=== PATIENT | female | born 1985 | race Caucasian/White ===

== ENCOUNTER 2017-06-16 11:22 | Inpatient (IN) | payer MEDICAID ==
[~2017-06-16] VITALS: Ht 149.9 cm; Wt 54.0 kg
[~2017-06-16 11:22] MED LIST: PREN1TAB17 PO
[2017-06-16] MEDS ORDERED: LACTATED RINGER'S 1,000 ML IV SCH (11:34)
--- NOTE | 2017-06-16 11:58 | LDN ---
Date/Time of Note Date/Time of Note DATE: 06/16/17 TIME: 11:54 Delivery Summary Normal spontaneous vaginal delivery of a baby boy from DES position, meconium- stained amniotic fluid shoulders delivered without any difficulty rest of the baby's body follow cord meconium stain clamped after stopped pulsation placenta meconium stain spontaneous expulsion sent to the pathology perineum and vagina inspected no laceration Weeks of Gestation 39 weeks Placenta Delivered: Spontaneously Meconium: Light Episiotomy: No Laceration repair: None Sponge & Needle done & correct: Yes All needle counts correct: Yes Any foreign bodies felt in the: No Problems: Infant Delivery Information Sex Infant Sex: male Apgars 1 Minute: 9 5 Minute: 9 Suctioning Nose & mouth suctioned at maureen: Yes Delee suction performed: No Umbilical Cord Umbilical cord with: 3 Vessels Cord Blood was obtained: Yes BENJI COLVIN MD Jun 16, 2017 11:58
[2017-06-16] MEDS ORDERED: LIDOCAINE 1% (MPF) 30 ML INJ INJ PRN (12:00)
[2017-06-16] MEDS ORDERED: IBUPROFEN 600 MG TAB PO PRN (12:00)
[2017-06-16] MEDS ORDERED: OXYTOCIN 30 UNITS/LR 500 ML IV SCH ×2 (12:00)
[2017-06-16] MEDS ORDERED: MISOPROSTOL 200 MCG TAB PR PRN (12:00)
[2017-06-16] MEDS ORDERED: LACTATED RINGER'S 1,000 ML IV PRN (12:00)
[2017-06-16] MEDS ORDERED: BUTORPHANOL 2 MG INJ IV PRN (12:00)
[2017-06-16] MEDS ORDERED: METHYLERGONOVINE 0.2 MG INJ IM PRN (12:00)
[2017-06-16] MEDS ORDERED: OXYTOCIN 30 UNITS/LR 500 ML IV PRN (12:00)
[2017-06-16] MEDS ORDERED: CARBOPROST 250 MCG INJ IM PRN (12:00)
--- NOTE | 2017-06-16 12:03 | HP ---
Date/Time of Note Date/Time of Note DATE: 06/16/17 TIME: 11:59 OB - History Hx of Present Free Text/Dictation 31 years old female admitted to [facility] in active pelvic examination on admission cervix 6-7 cm dilated 100% effaced vertex at -1 estate she is a 6 para 4 EDC June 23, 2017 39 weeks she will be transferred directly to the delivery room for delivery Chief Complaint: Labor contract Estimated Due Date: Jun 23, 2017 : 6 Para: 4 Spontaneous : 1 Care: Limited Care Ultrasounds: Normal mid trimester US Obstetrical Complications: Gestational Diabetes Medical Complications: None Past Family/Social History * Past Medical, Surgical, Family and Obstetric Histories reviewed from chart. Rubella: immune RPR/VDRL: Negative GBS Status: Negative HBsAG: Negative OB Admission Exam Physical Exam HEENT: WNL Heart: Rhythm Normal Lungs: Clear, Equal Abdomen: WNL Extremities: Normal Reflexes: Normal Cervical Dilatation: 5cm Effacement: 100% Station: 0 Heart Rate: 130's Accelerations: Accelerations Present Decelerations: No Decelerations Varibility: Moderate Contractions on Admission: < 5 Minutes Apart Intensity: Firm BENJI COLVIN MD Jun 16, 2017 12:03
[2017-06-16 12:04] VITALS: BP 122/60; PULSE 84; RESP 18
[2017-06-16 12:07] VITALS: Ht 149.9 cm; Wt 54.0 kg
[2017-06-16 12:19] LABS: WHITE BLOOD COUNT 6.2 10^3/ul (4.8-10.8)
[2017-06-16 12:20] LABS: BASOPHILS % 0.2 % (0.0-2.0); EOSINOPHILS % 0.5 % (0.0-7.0); HEMATOCRIT 39.5 % (37.0-47.0); INR 1.02; LYMPHOCYTES # 1.4 10^3/ul (0.8-2.9); LYMPHOCYTES % 22.3 % (15.0-51.0); MEAN CORPUSCULAR HEMOGLOBIN 30.2 pg (29.0-33.0); MEAN CORPUSCULAR HGB CONC 32.9 g/dl (32.0-37.0); MEAN CORPUSCULAR VOLUME 91.6 fl (82.0-101.0); MEAN PLATELET VOLUME 10.7 fl (7.4-10.4); MONOCYTE # 0.2 10^3/ul (0.3-0.9); MONOCYTES % 3.5 % (0.0-11.0); NEUTROPHIL # 4.5 10^3/ul (1.6-7.5); NEUTROPHILS % 72.7 % (39.0-77.0); PLATELET COUNT 217 10^3/UL (140-415); PROTIME 13.4 Sec (12.2-14.2); RED BLOOD COUNT 4.31 10^6/ul (4.20-5.40); RED CELL DISTRIBUTION WIDTH 14.6 % (11.5-14.5)
[2017-06-16 12:21] LABS: PARTIAL THROMBOPLASTIN TIME 29.2 Sec (25.0-35.0)
[2017-06-16 14:20] VITALS: BP 127/68; PULSE 58; RESP 19
[2017-06-16] MEDS ORDERED: WITCH HAZEL/GLYCERIN PAD PR PRN (15:30)
[2017-06-16] MEDS ORDERED: ACETAMINOPHEN 325 MG TAB PO PRN (15:30)
[2017-06-16] MEDS ORDERED: HYDROCODONE/APAP (5/325) TAB PO PRN ×2 (15:30)
[2017-06-16] MEDS ORDERED: ONDANSETRON 4 MG INJ IV PRN (15:30)
[2017-06-16] MEDS ORDERED: BENZOCAINE 20% 56 ML SPRAY TOP PRN (15:30)
[2017-06-16] MEDS ORDERED: DIBUCAINE 1% 30 GM OINT PR PRN (15:30)
[2017-06-16] MEDS ORDERED: OXYCODONE/ASPIRIN (4.88/325) TAB PO PRN ×2 (15:30)
[2017-06-16] MEDS ORDERED: LANOLIN 7 GM TUBE TOP PRN (15:30)
[2017-06-16 16:00] VITALS: BP 116/58; PULSE 79; RESP 18
[2017-06-16] MEDS: IBUPROFEN 600 MG TAB PO SCH (17:21)
[2017-06-16] MEDS: OXYTOCIN 30 UNITS/LR 500 ML IV SCH ×2 (17:23→19:14)
[2017-06-16 18:16] LABS: BARBITURATES Negative (NEGATIVE); BENZODIAZEPINES Negative (NEGATIVE); CANNABINOIDS Negative (NEGATIVE); COCAINE Negative (NEGATIVE); OPIATES Negative (NEGATIVE)
[2017-06-16 20:00] VITALS: BP 129/69; RESP 18
[2017-06-17] MEDS: IBUPROFEN 600 MG TAB PO SCH ×5 (00:07→23:26)
[2017-06-17 01:03] VITALS: BP 106/54; PULSE 64; RESP 18
[2017-06-17 04:00] VITALS: BP 102/59; PULSE 77; RESP 19
[2017-06-17 07:43] VITALS: BP 95/50; PULSE 66; RESP 18
[2017-06-17] MEDS: SENNA/DOCUSATE NA (8.6MG/50MG) TAB PO SCH ×2 (08:38→21:28)
--- NOTE | 2017-06-17 09:11 | PN ---
Date/Time of Note Date/Time of Note DATE: 06/17/17 TIME: 09:10 OB Subjective Subjective Subjective Post normal vaginal delivery day 1 Afebrile Vital signs are stable Abdomen soft uterus firm lochia normal extremity normal Laboratory Tests Test 06/16/17 11:55 06/16/17 17:30 White Blood Count 6.210^3/ul Red Blood Count 4.3110^6/ul Hemoglobin 13.0g/dl Hematocrit 39.5% Mean Corpuscular Volume 91.6fl Mean Corpuscular Hemoglobin 30.2pg Mean Corpuscular Hemoglobin Concent 32.9g/dl Red Cell Distribution Width 14.6% Platelet Count 08317^3/UL Mean Platelet Volume 10.7fl Neutrophils % 72.7% Lymphocytes % 22.3% Monocytes % 3.5% Eosinophils % 0.5% Basophils % 0.2% Nucleated Red Blood Cells % 0.0/100WBC Neutrophils # 4.510^3/ul Lymphocytes # 1.410^3/ul Monocytes # 0.210^3/ul Eosinophils # 0.010^3/ul Basophils # 0.010^3/ul Nucleated Red Blood Cells # 0.010^3/ul Prothrombin Time 13.4Sec Prothrombin Time Ratio 1.0 INR International Normalized Ratio 1.02 Activated Partial Thromboplast Time 29.2Sec Rapid Plasma Reagin NONREACTIVE Hepatitis B Surface Antigen NEGATIVE Urine Opiates Screen Negative Urine Barbiturates Negative Urine Amphetamines Screen Negative Urine Benzodiazepines Screen Negative Urine Cocaine Screen Negative Urine Cannabinoids Negative Current Medications Medications (Trade) Dose Ordered Sig/Jon Route PRN Reason Start Time Stop Time Status Last Admin Dose Admin Lactated Ringer's (Lr) 1,000 ml @ 125 mls/hr Q8H IV 06/16/17 11:34 06/16/17 15:16 DC Butorphanol Tartrate (Stadol) 2 mg Q2H PRN IV PAIN 06/16/17 12:00 06/16/17 15:16 DC Lidocaine 30 ml 30 ml ONCE PRN INJ EPISIOTOMY/TEARING 06/16/17 12:00 06/16/17 15:16 DC Oxytocin/Lactated Ringer's 500 ml @ 125 mls/hr ONCE -MAY REPEAT X1 IV 06/16/17 12:00 06/16/17 15:16 DC 06/16/17 12:11 Oxytocin/Lactated Ringer's 500 ml @ 125 mls/hr ONCE IV 06/16/17 12:00 06/16/17 15:16 DC 06/16/17 12:19 Ibuprofen 600 mg 600 mg ONCE PRN PO Mild Pain (Pain Score 1-3) 06/16/17 12:00 06/16/17 15:16 DC 06/16/17 13:46 Lactated Ringer's 1,000 ml @ 2,000 mls/hr Q30M PRN IV PRE-EPIDURAL BOLUS 06/16/17 12:00 06/16/17 15:17 DC Oxytocin/Lactated Ringer's 500 ml @ 0 mls/hr ONCE PRN IV For Hemorrhage Management 06/16/17 12:00 06/16/17 15:16 DC Methylergonovine Maleate (Methergine) 0.2 mg ONCE PRN IM VAGINAL BLEEDING 06/16/17 12:00 06/16/17 15:16 DC Carboprost Tromethamine (Hemabate) 250 mcg ONCE PRN IM VAGINAL BLEEDING 06/16/17 12:00 06/16/17 15:16 DC Misoprostol 1000 mcg 1,000 mcg ONCE PRN MT VAGINAL BLEEDING 06/16/17 12:00 06/16/17 15:16 DC Oxytocin/Lactated Ringer's 500 ml @ 125 mls/hr Q4H IV 06/16/17 15:14 06/16/17 23:13 DC 06/16/17 17:23 Ibuprofen (Motrin) 600 mg Q6 PO 06/16/17 18:00 06/17/17 05:45 Acetaminophen (Tylenol Tab) 650 mg Q4H PRN PO PAIN LEVEL 1-5 06/16/17 15:30 Acetaminophen/ Hydrocodone Bitart (Willard (5/325)) 1 tab Q4H PRN PO PAIN LEVEL 1-5 06/16/17 15:30 Acetaminophen/ Hydrocodone Bitart (Willard (5/325)) 2 tab Q4H PRN PO PAIN LEVEL 6-10 06/16/17 15:30 Oxycodone/Aspirin (Percodan) 1 tab Q3H PRN PO PAIN LEVEL 1-5 06/16/17 15:30 Oxycodone/Aspirin (Percodan) 2 tab Q3H PRN PO PAIN LEVEL 6-10 06/16/17 15:30 Ondansetron HCl (Zofran Inj) 4 mg Q6H PRN IV NAUSEA AND/OR VOMITING 06/16/17 15:30 Senna/Docusate Sodium (Senokot-S) 1 tab BID PO 06/17/17 09:00 06/17/17 08:38 Witch Jelly/ Glycerin (Tucks Pads) 1 pad BEDSIDE MEDICATION PRN MT HEMORRHOID/EPISIOTMY PAIN 06/16/17 15:30 06/16/17 16:04 Benzocaine (Dermoplast Delta) 1 spray BEDSIDE MEDICATION PRN TOP HEMORRHOID/EPISIOTMY PAIN 06/16/17 15:30 06/16/17 16:04 Dibucaine (Nupercainal) 1 applic BEDSIDE MEDICATION PRN MT HEMORRHOID/EPISIOTMY PAIN 06/16/17 15:30 Lanolin (Isc-J-Ayztap) 1 applic BEDSIDE MEDICATION PRN TOP BEDSIDE FOR CATERINA TO NIPPLES 06/16/17 15:30 06/16/17 16:04 Measles/Mumps/ Rubella Vaccine Live (Mmr Ii Vaccine) 0.5 ml ONCE ONCE SC* 06/18/17 09:00 06/18/17 09:01 BENJI COLVIN MD Jun 17, 2017 09:11
--- NOTE | 2017-06-17 09:20 | PN ---
Date/Time of Note Date/Time of Note DATE: 06/17/17 TIME: 09:19 OB Subjective Subjective Subjective day 1 Afebrile vital signs are stable abdomen soft uterus firm lochia normal extremity normal BENJI COLVIN MD Jun 17, 2017 09:20
[2017-06-17 11:15] LABS: BASOPHILS % 0.2 % (0.0-2.0); EOSINOPHILS # 0.1 10^3/ul (0.0-0.5); EOSINOPHILS % 0.8 % (0.0-7.0); HEMATOCRIT 34.6 % (37.0-47.0); HEMOGLOBIN 11.4 g/dl (12.0-16.0); LYMPHOCYTES # 1.2 10^3/ul (0.8-2.9); LYMPHOCYTES % 14.4 % (15.0-51.0); MEAN CORPUSCULAR HEMOGLOBIN 30.3 pg (29.0-33.0); MEAN CORPUSCULAR HGB CONC 32.9 g/dl (32.0-37.0); MEAN PLATELET VOLUME 10.9 fl (7.4-10.4); MONOCYTE # 0.5 10^3/ul (0.3-0.9); MONOCYTES % 6.1 % (0.0-11.0); NEUTROPHIL # 6.5 10^3/ul (1.6-7.5); NEUTROPHILS % 77.9 % (39.0-77.0); PLATELET COUNT 212 10^3/UL (140-415); RED BLOOD COUNT 3.76 10^6/ul (4.20-5.40); RED CELL DISTRIBUTION WIDTH 14.5 % (11.5-14.5); WHITE BLOOD COUNT 8.3 10^3/ul (4.8-10.8)
[2017-06-17 16:09] VITALS: BP 111/56; PULSE 66; RESP 18
[2017-06-17 20:00] VITALS: BP 124/72; PULSE 74; RESP 20
[2017-06-18 03:42] VITALS: BP 115/60; PULSE 70; RESP 20
[2017-06-18] MEDS: IBUPROFEN 600 MG TAB PO SCH ×3 (05:27→18:22)
[2017-06-18 08:15] VITALS: BP 110/53; PULSE 60; RESP 19
[2017-06-18] MEDS ORDERED: MEASLES,MUMPS,RUBELLA VACCINE INJ SC* ONE (09:00)
[2017-06-18] MEDS: SENNA/DOCUSATE NA (8.6MG/50MG) TAB PO SCH (09:31)
[2017-06-18 15:15] VITALS: BP 111/64; PULSE 75; RESP 19
--- NOTE | 2017-06-18 19:55 | PD.PPDC ---
EMERGENCY COMMUNICATIONS DISPATCHER Discharge Instruction Condition Patient Condition: Good Diet Diet: Resume Regular Diet Activity/Restrictions Activity: Normal Activity May Shower Restrictions: No Exercising No Lifting No Driving No Sexual Activity Nothing in the Vagina No [place] No Tampons, douche Follow-up Follow-up with Physician: Week/Weeks Provider Information: instructions given recommended patient to make an appointment to be seen at the office in 2 weeks Return to clinic for [employer] Instructions: Fever greater than 101 Chills Worsening abdominal pain Excessive Vaginal Bleeding More than 2 pads per hour Unable to tolerate diet OB Instructions: Breast Tenderness Depression Blurried Vision Headache BENJI COLVIN MD Jun 18, 2017 19:55
--- NOTE | 2017-06-18 19:57 | DS ---
Date/Time of Note Date/Time of Note DATE: 06/18/17 TIME: 19:56 Discharge Summary Admission/Discharge Info Admit Date/Time Jun 16, 2017 at 11:27 Discharge Date/Time June 18, 2017 Discharge Diagnosis Post normal vaginal delivery Patient Condition: Good Procedures Normal vaginal delivery Hx of Present Illness Term Hospital Course Satisfactory recovery uneventful Home Meds Reported Medications Vit-Iron Fumarate-FA ( Tablet) 1 Each Tablet, 1 EACH PO DAILY 08/14/13 Follow-up Plan instructions given recommended to make appointment to be seen at the clinic in 2 weeks Primary Care Provider Care Physician No Primary Time spent on discharge: < 30 minutes BENJI COLVIN MD Jun 18, 2017 19:57
== END 2017-06-18 20:50 | disposition home or self-care (01) | DRG 775 ==
LOC: OBT 11:22 → L-D 11:23 → OBT 11:26 → L-D 11:27 → PP1 14:19
PROVIDERS: ADMIT Obstetrics & Gynecology; ATTEND Obstetrics & Gynecology
PROC: 10E0XZZ Delivery of Products of Conception, External Approach (ICD-10-PCS; principal; 2017-06-16)
DX: O24.429 Gestational diabetes mellitus in childbirth, unspecified control (principal); O77.0 Labor and delivery complicated by meconium in amniotic fluid; Z37.0 Single live birth; Z3A.39 39 weeks gestation of pregnancy
CPT/HCPCS: 80307; 85025; 85610; 85730; 86592; 86900; 86901; 87340; 99464; J2590; J7120

== ENCOUNTER 2018-09-30 23:46 | Inpatient (IN) | END 2018-10-02 20:30 | disposition home or self-care (01) | DRG 807 ==